=== PATIENT | male | born 1950 | race Caucasian/White ===

== ENCOUNTER 2023-07-09 10:43 | Emergency (ER) | payer OTHER, SELFPAY ==
[2023-07-09 10:47] VITALS: BP 127/89
[2023-07-09 11:08] VITALS: BMI 24.8
[2023-07-09 11:17] VITALS: BP 118/80
--- NOTE | 2023-07-09 11:32 | ED.GENMED ---
History of Present Illness
General
Chief Complaint: Change in Mental Status
Source: patient and spouse
Exam Limitations: dementia
Time Seen by Provider: 07/09/23 11:05
Nursing documentation reviewed up to this point in time: agreed with
Travel History
Have you had any contact with someone who has COVID-19?: No
Do you have any symptoms of coronavirus? Fever > 100 degrees, chills, cough, shortness of breath, sore throat, loss of taste or smell, muscle aches, or headache?: No
History of Present Illness
History of Present Illness:
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 Garcia at [place]. states pt has been declining weekly for some time but more significant decline past 10 days with new
behaviors of: rocking back and forth scratching his anterior thighs, leaning forward with arms folded across his abdomen wincing and moaning, more grunting, crying at times, shuffling walk, restless movements when sleeping, staying awake all night
some nights.
Since 06/28 pt could not go up steps alone anymore, couldn't comprehend lifting his feet to step up.
Started adult daycare 05/16/23
05/29 Started Seroquel 50 mg HS and Increased Melatonin from 6 mg to 12 mg HS.
Started daycare 05/16 and due to aggressive behavior earlier this month, Seroquel dose increased to 25 mg daily added
Hx mouth movement, twitching October 2022, neuro diagnosed as tics, put on Tetrabenazine then DC'd 02/2023 as tics resolved.
These tics recently started again and started Tetrabenazine 3 days ago, has had total 3 doses with no improvement so far.
Past History
Past History
ED Past Medical History: Asthma, HTN and Hypercholesterolemia
Social History
Tobacco: Non-smoker
Alcohol: None
Drug: None
Personal:
Living: with family
Employment: Retired
Family History
Family History: Other (Noncontributory)
Review of Systems
Review of Systems
Allergies reviewed?: Yes
All Other Systems: ROS reviewed and negative except as documented in HPI and ROS
Constitutional: Denies fever
Respiratory: Denies trouble breathing
Cardiac: Denies chest pain
ABD/GI: Denies abdominal pain, nausea or vomiting
: Denies dysuria, frequency or difficulty voiding
Musculoskeletal: Denies edema
Skin: Reports no symptoms
Neurological: Reports no symptoms
Phy Exam
Physical Exam
Physical Exam:
GENERAL: No acute distress. Alert, pleasant, demented
CONSTITUTIONAL: Afebrile.
EYES: PERRL, conjunctivae normal
ENMT: moist mucus membranes, Pharynx nl
RESPIRATORY: Regular respirations, nonlabored, lungs clear.
CARDIOVASCULAR: Regular rate and rhythm, no murmurs, no rubs.
GI: Soft, nontender, normal BS
MUSCULOSKELETAL: Moves with ease. Well perfused. No edema
SKIN: Warm, dry, pink
PSYCH: Normal mood and affect. Well kept, interactive follows commands, not oriented
NEUROLOGIC: Awake, alert. No focal neurological deficits. Follows commands. Forgetful, not oriented. Moving all extremities well. Strength equal throughout
Course
Orders/Labs/Results
Orders:
Orders
07/09/23 11:25
CT Head W/o Iv Contrast Urgent
Comment:
Reason For Exam: change in mental state
0.9% Sodium Chloride 500 ml [Nss] 500 ml IV BOLUS
07/09/23 11:31
Case Management Consult ONCE
Case Management Consult: Discharge Planning
Requested By:: PHYSICIAN
Comment: Radha's with declining mental state, asking about Palliative care. Thanks!
07/09/23 11:37
Complete Blood Count/With Diff Urgent
Comprehensive Metabolic Panel Urgent
Lipase Urgent
07/09/23 13:04
Urinalysis Reflex To Culture Urgent
Date Specimen was Collected: 07/09/23
Time Specimen was Collected: 13:00
Abnormal Lab Results
07/09/23
11:37
RBC 4.66 L 10^6/uL
(4.70-6.10)
MCH 32.2 H pg
(27.0-31.0)
MCHC 37.1 H g/dL
(33.0-37.0)
Absolute Lymphs (auto) 1.1 L 10^3/uL
(1.2-3.4)
Absolute Monos (auto) 0.9 H 10^3/uL
(0.1-0.6)
Lymphocytes % 16.2 L %
(20.5-51.1)
Monocytes % 14.1 H %
(1.7-9.3)
Sodium 130 L mmol/L
(135-145)
Chloride 96 L mmol/L
(98-107)
07/09/23 11:37
07/09/23 11:37
Vital Signs
Initial and Last Documented VS:
Initial Vital Signs
Temp Pulse Resp BP Pulse Ox
98.0 F 69 16 127/89 98
07/09/23 10:47 07/09/23 10:47 07/09/23 10:47 07/09/23 10:47 07/09/23 10:47
Last Documented Vital Signs
Temp Pulse Resp BP Pulse Ox
98.0 F 60 15 118/80 96
07/09/23 10:47 07/09/23 14:15 07/09/23 14:15 07/09/23 11:17 07/09/23 14:15
MDM/Problems Addressed
Differential Diagnosis Includes:
dehydration, UTI, CVA, progressive dementia
MDM/Problems Addressed:
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 Garcia at [place]. states pt has been declining weekly for some time but more significant decline past 10 days with new
behaviors of: rocking back and forth scratching his anterior thighs, leaning forward with arms folded across his abdomen wincing and moaning, more grunting, crying at times, shuffling walk, restless movements when sleeping, staying awake all night
some nights.
Since 06/28 pt could not go up steps alone anymore, couldn't comprehend lifting his feet to step up.
Started adult daycare 05/16/23
05/29 Started Seroquel 50 mg HS and Increased Melatonin from 6 mg to 12 mg HS.
Started daycare 05/16 and due to aggressive behavior earlier this month, Seroquel dose increased to 25 mg daily added
Hx mouth movement, twitching October 2022, neuro diagnosed as tics, put on Tetrabenazine then DC'd 02/2023 as tics resolved.
These tics recently started again and started Tetrabenazine 3 days ago, has had total 3 doses with no improvement so far.
is asking to see case management about possibly putting patient on palliative care. Her PCP had recommended hospice but they cannot see her until the end of July.
Case management consult
12:53 PM
CBC with no clinically significant abnormality
CMP with no clinically significant abnormality
Lipase normal
Head CT radiology report read: No evidence of acute intracranial abnormality.
2:18 PM
UA negative
Case management in to speak with , someone from visiting nurse will visit patient within the next 48 hours, palliative care and hospice will be discussed at that time. is very comfortable with this plan
Patient is stable for discharge
*Critical Care Note
Total Time (30-74mins, 75-104mins- exclusive of procedures): Not Applicable
ED Attending Note
-
Portions of this chart may have been created with voice recognition software.� Occasional wrong word or��sound alike� substitutions may have occurred due to the inherent limitations of voice recognition software.
Discharge Plan
Departure
Patient Disposition: Home (Routine Discharge)
Date of Disposition: 07/09/23
Time of Disposition: 14:19
Patient with high blood pressure during this ER visit?: No
Condition: Fair
Discharge Problem:
Change in mental status
Instructions: Altered Mental Status (DC)
Prescriptions:
No Action
atorvastatin 10 mg tablet
10 mg PO QPM
amlodipine 10 mg tablet
10 mg PO DAILY
hydrochlorothiazide 25 mg tablet
25 mg PO DAILY
quetiapine 25 mg Tablet
25 mg PO .SEE BELOW
Patient Comments:
07/09/2023, currently on hold. Prescribed one tablet in afternoon.
quetiapine 25 mg Tablet
50 mg PO .SEE BELOW
Patient Comments:
07/09/2023, currently on hold. Prescribed two tablets HS.
fluticasone propion-salmeterol 250-50 mcg/dose Blister With Device
1 inh INHALATION R BIDPRN PRN (Reason: sob)
polyethylene glycol 3350 [Miralax] 17 gram Powder In Packet
17 g PO BID
Patient Comments:
07/09/2023, taken with prune juice.
clonazepam 0.5 mg Tablet
0.5 mg PO .SEE BELOW PRN (Reason: ticks)
Patient Comments:
07/09/2023, currently on hold per spouse. Prescribed HSPRN.
bisacodyl [Dulcolax (bisacodyl)] 10 mg Suppository
10 mg [place] DAILY PRN (Reason: constipation)
tetrabenazine 12.5 mg Tablet
12.5 mg PO HS
Patient Comments:
07/09/2023, last filled on 12/20/2022 for 30 tablets; was on hold per spouse but PCP allowed pt. to start taking it again; has taken for past 2-3 nights for pt.'s ticks.
melatonin 12 mg Tablet
12 mg PO HS
Patient Comments:
07/09/2023, chewable.
Referrals:
Galileo Connor, [Family Provider] -
Activity Restrictions/Additional Instructions:
As we discussed, the urine shows no infection
Someone from the [facility] visiting nurses will come to your house within the next 48 hours. At that time palliative care and hospice can be discussed.
Nothing worrisome medically in your workup here today.
Interventions
Interventions:
*Risk Screen - Suicide Last Done: 07/09/23 11:40
*General Assessment Last Done: 07/09/23 13:01
*Neglect/Abuse Screening Last Done: 07/09/23 11:40
ED- Fall Risk Assessment Last Done: 07/09/23 11:19
*ED COVID-19 Vaccine History Last Done: 07/09/23 10:47
*Nursing Disposition Last Done: 07/09/23 14:36
ED- Pulmonary Assessment Last Done: 07/09/23 11:19
ED-Psychological Assessment Last Done: 07/09/23 14:36
ED- Neurological Assessment Last Done: 07/09/23 11:19
ED- Cardiac Assessment Last Done: 07/09/23 11:19
ED Swallowing Screen Last Done: 07/09/23 13:55
Discharge Date and Time
Discharge Date/Time: 07/09/23 14:49
Print Language: SOUTH SUDAN[place]
--- NOTE | 2023-07-09 11:49 | CM ---
Addendum entered by Brook Gunn RN 07/09/23 13:15:
Patient's confirmed appointment with Palliative Care.
Addendum entered by Brook Gunn RN 07/09/23 13:08:
CM was updated by [facility] that there is an appointment available on 07/16. CM updated patient's to call to accept appointment time. Patient's will call while in room.
Addendum entered by Brook Gunn RN 07/09/23 12:30:
CM met with patient's . Patient's is requesting assistance with palliative care referral. Patient has been referred to palliative Care by patient's outside MD. PCP referred patient also to Hospice.
Patient's would like a referral to Palliative Care and [facility]. Patient's has received a call from Hospice. CM advised that she speak with hospice to get further information on patient's eligibility.
CM sent referrals via [facility] to [facility] and Palliative Care.
Original Note:
CM received consult to discuss palliative care options with family. Patient not in room at this time. CM will follow.
[2023-07-09] MEDS: NSS 500 IV (12:02)
[2023-07-09 12:10] LABS: % Basophils 1.2 % (0-2); % Eosinophils 0.8 % (0-6); % Immature Granulocytes 0.3 % (0-0.5); % Lymphocytes 16.2 % (20.5-51.1); % Monocytes 14.1 % (1.7-9.3); % Neutrophils 67.4 % (42.2-75.2); Absolute Basophils 0.1 10^3/uL (0-0.2); Absolute Eosinophils 0.1 10^3/uL (0-0.7); Absolute Lymphocytes 1.1 10^3/uL (1.2-3.4); Absolute Monocytes 0.9 10^3/uL (0.1-0.6); Absolute Neutrophils 4.5 10^3/uL (1.4-6.5); Hematocrit 40.4 % (39.0-52.0); Mean Corp Hgb Conc. 37.1 g/dL (33.0-37.0); Mean Corpuscular Hgb 32.2 pg (27.0-31.0); Mean Corpuscular Volume 86.7 fL (80.0-94.0); Mean Platelet Volume 9.2 fL (7.4-10.4); Nucleated Red Blood Cells % 0 % (-); Platelet Count 304 10^3/uL (130-400); Red Blood Cell Count 4.66 10^6/uL (4.70-6.10); Red Cell Dist. Width 12.9 % (11.5-14.5); White Blood Cell Count 6.6 10^3/uL (4.8-10.8)
[2023-07-09 12:42] LABS: ALT (SGPT) 23 U/L (0-50); AST (SGOT) 26 U/L (17-59); Albumin 4.1 g/dl (3.5-5.0); Alkaline Phosphatase 53 U/L (38-126); Blood Urea Nitrogen 13 mg/dl (9-20); Calcium 9.8 mg/dl (8.4-10.2); Carbon Dioxide 28 mmol/L (22-30); Chloride 96 mmol/L (98-107); Estimated Creatinine Clearance 76 ml/min; Glucose 92 mg/dl (70-99); Lipase 175 U/L (23-300); Potassium 3.5 mmol/L (3.5-5.1); Sodium 130 mmol/L (135-145); Total Bilirubin 0.7 mg/dl (0.2-1.3); Total Protein 6.7 g/dl (6.3-8.2); eGFR > 60.00
[2023-07-09 13:25] LABS: Urine Albumin Negative (Neg - Trace); Urine Bilirubin Negative (Negative); Urine Character Clear (Clear); Urine Color Yellow; Urine Glucose Negative (Negative); Urine Ketone Negative (Negative); Urine Leukocyte Negative (Negative); Urine Nitrite Negative (Negative); Urine Occult Blood Negative (Negative); Urine Urobilinogen Negative (Neg - 1+)
== END 2023-07-09 14:49 | disposition home or self-care (01) ==
LOC: EMR 10:43
PROVIDERS: Registered Nurse; EMERGENCY PHYSICIAN Emergency Medicine; FAMILY PHYSICIAN Family Medicine
DX: R41.82 Altered mental status, unspecified (principal); G30.9 Alzheimer's disease, unspecified; F02.80 Dementia in other diseases classified elsewhere, unspecified severity, without behavioral disturbance, psychotic disturbance, mood disturbance, and anxiety
CPT/HCPCS: 99284; 96360; 70450; 80053; 81003; 83690; 85025

== ENCOUNTER 2024-01-21 10:35 | Emergency (ER) | payer OTHER, SELFPAY ==
[2024-01-21 10:45] VITALS: BP 110/77
[2024-01-21 10:48] VITALS: BMI 24.9
--- NOTE | 2024-01-21 11:39 | HOSPNOTE ---
I have been in contact with spouse and the plan was for patient to be admitted to hospice services at home tomorrow 01/21. The patient had two falls and change in mental status, fever and cough and one episode of vomiting. The spouse called me this
am and told me that patient was on the floor again and just did not seem right. Advised spouse to call 911. The plan is to check labs, CT of head and urine and then send patient home with hospice services with . Will continue to follow.
[2024-01-21] MEDS: NSS 1000 IV (11:41)
[2024-01-21 11:55] LABS: % Basophils 0.5 % (0-2); % Eosinophils 0.4 % (0-6); % Immature Granulocytes 0.3 % (0-0.5); % Monocytes 12.2 % (1.7-9.3); % Neutrophils 71.6 % (42.2-75.2); Absolute Basophils 0.1 10^3/uL (0-0.2); Absolute Lymphocytes 1.6 10^3/uL (1.2-3.4); Absolute Monocytes 1.3 10^3/uL (0.1-0.6); Absolute Neutrophils 7.5 10^3/uL (1.4-6.5); Hematocrit 35.6 % (39.0-52.0); Hemoglobin 12.7 g/dL (13.0-18.0); Mean Corp Hgb Conc. 35.7 g/dL (33.0-37.0); Mean Corpuscular Hgb 30.5 pg (27.0-31.0); Mean Corpuscular Volume 85.4 fL (80.0-94.0); Nucleated Red Blood Cells % 0 % (-); Platelet Count 179 10^3/uL (130-400); Red Blood Cell Count 4.17 10^6/uL (4.70-6.10); Red Cell Dist. Width 13.2 % (11.5-14.5); White Blood Cell Count 10.4 10^3/uL (4.8-10.8)
--- NOTE | 2024-01-21 11:58 | ED.GENMED ---
History of Present Illness
General
Chief Complaint: Weakness
Time Seen by Provider: 01/21/24 10:36
History of Present Illness
History of Present Illness:
73-year-old male with history of severe Alzheimer's presents to the emergency department for evaluation of malaise, fever, and vomiting over the past 2 days. According to his he has progressed rapidly through his dementia and she plans to have
him placed on hospice tomorrow. However over the past 2 days his symptoms have been dramatically worse. He has been incontinent of stool as well. Did strike his head with a fall out of bed yesterday while she was attempting to clean him
Past History
Past History
ED Past Medical History: Asthma, HTN and Hypercholesterolemia
Social History
Tobacco: Non-smoker
Alcohol: None
Drug: None
Personal:
Living: with family
Employment: Retired
Family History
Family History: Other (Noncontributory)
Review of Systems
Review of Systems
Allergies reviewed?: Yes
All Other Systems: ROS reviewed and negative except as documented in HPI and ROS
Phy Exam
Physical Exam
Physical Exam:
GEN: Well appearing, NAD, WDWN
Eyes: PERRLA, EOMs intact, no scleral icterus
HENT: NCAT, oral mucosa dry
Lungs: CTAB, no wheezes, rales, rhonchi, normal chest wall excursion
Cardiac: RRR, no M/R/G, no peripheral edema. Radial pulses 2+ bilat
Abdomen: S, NT, ND, NABS, no masses or hepatosplenomegaly
Neuro: Soft, opens eyes to voice or tactile stimuli but is profoundly disoriented, moves all extremities freely
MSK: No gross deformity or ecchymosis. No edema. No digital clubbing
Skin: No rashes, petechiae. Normal color, no pallor or jaundice.
Psych: Calm, cooperative, proper hygiene
Course
Orders/Labs/Results
Orders:
Orders
01/21/24 11:01
CT Head W/o Iv Contrast Urgent
Comment:
Reason For Exam: fall OOB
0.9% Sodium Chloride 1000 ml [Nss] 1,000 ml IV BOLUS
01/21/24 11:47
COVID-19 Antigen Urgent
Source: Nasal Swab
Complete Blood Count/With Diff Urgent
Comprehensive Metabolic Panel Urgent
Urinalysis Reflex To Culture Urgent
Date Specimen was Collected: 01/21/24
Time Specimen was Collected: 11:36
01/21/24 13:08
Potassium Chloride [KCl] 20 meq 0.9% Sodium Chloride 150 ml [Nss] 150 ml IV NOW
01/21/24 16:08
Olanzapine [Zyprexa] 5 mg IM NOW STA
01/21/24 16:09
Sterile Water [Sterile Water For Injection] 10 ml .ROUTE .[facility]
01/21/24 16:34
Lorazepam [Ativan] 1 mg PO NOW STA
Abnormal Lab Results
01/21/24
11:47
RBC 4.17 L 10^6/uL
(4.70-6.10)
Hgb 12.7 L g/dL
(13.0-18.0)
Hct 35.6 L %
(39.0-52.0)
Absolute Neuts (auto) 7.5 H 10^3/uL
(1.4-6.5)
Absolute Monos (auto) 1.3 H 10^3/uL
(0.1-0.6)
Lymphocytes % 15.0 L %
(20.5-51.1)
Monocytes % 12.2 H %
(1.7-9.3)
Potassium 2.8 L mmol/L
(3.5-5.1)
Chloride 96 L mmol/L
(98-107)
Carbon Dioxide 37 H mmol/L
(22-30)
Glucose 102 H mg/dl
(70-99)
Total Protein 5.9 L g/dl
(6.3-8.2)
SARS-CoV-2 Antigen Positive A
(Negative)
01/21/24 11:47
01/21/24 11:47
Vital Signs
Initial and Last Documented VS:
Initial Vital Signs
Temp Pulse Resp BP Pulse Ox
98.3 F 56 18 110/77 98
01/21/24 10:45 01/21/24 10:45 01/21/24 10:45 01/21/24 10:45 01/21/24 10:45
Last Documented Vital Signs
Temp Pulse Resp BP Pulse Ox
98.3 F 62 20 130/77 95
01/21/24 10:45 01/21/24 16:30 01/21/24 16:30 01/21/24 16:30 01/21/24 16:30
MDM/Problems Addressed
MDM/Problems Addressed:
Patient's labs are unremarkable for he is positive for COVID-19. CT of the head is reassuring. Patient's hospice nurse was involved in the care of the patient in the ER, at this time the is comfortable bringing him home with a hospice care to
begin tomorrow, his significant metabolic encephalopathy is likely due to COVID-19 however he is not hypoxic thus there is no indication for hospitalization
*Critical Care Note
Total Time (30-74mins, 75-104mins- exclusive of procedures): Not Applicable
ED Attending Note
-
Portions of this chart may have been created with voice recognition software.� Occasional wrong word or��sound alike� substitutions may have occurred due to the inherent limitations of voice recognition software.
Discharge Plan
Departure
Patient Disposition: Home (Routine Discharge)
Date of Disposition: 01/21/24
Time of Disposition: 14:34
Patient with high blood pressure during this ER visit?: No
Discharge Problem:
COVID-19
Instructions: COVID-19 ED
Prescriptions:
No Action
atorvastatin 10 mg tablet
10 mg PO QPM
amlodipine 10 mg tablet
10 mg PO DAILY
hydrochlorothiazide 25 mg tablet
25 mg PO DAILY
quetiapine 25 mg Tablet
25 mg PO .SEE BELOW
Patient Comments:
07/09/2023, currently on hold. Prescribed one tablet in afternoon.
quetiapine 25 mg Tablet
50 mg PO .SEE BELOW
Patient Comments:
07/09/2023, currently on hold. Prescribed two tablets HS.
fluticasone propion-salmeterol 250-50 mcg/dose Blister With Device
1 inh INHALATION R BIDPRN PRN (Reason: sob)
polyethylene glycol 3350 [Miralax] 17 gram Powder In Packet
17 g PO BID
Patient Comments:
07/09/2023, taken with prune juice.
clonazepam 0.5 mg Tablet
0.5 mg PO .SEE BELOW PRN (Reason: ticks)
Patient Comments:
07/09/2023, currently on hold per spouse. Prescribed HSPRN.
bisacodyl [Dulcolax (bisacodyl)] 10 mg Suppository
10 mg [place] DAILY PRN (Reason: constipation)
tetrabenazine 12.5 mg Tablet
12.5 mg PO HS
Patient Comments:
07/09/2023, last filled on 12/20/2022 for 30 tablets; was on hold per spouse but PCP allowed pt. to start taking it again; has taken for past 2-3 nights for pt.'s ticks.
melatonin 12 mg Tablet
12 mg PO HS
Patient Comments:
07/09/2023, chewable.
Referrals:
Galileo Connor DO [Family Provider] -
Interventions
Interventions:
*Risk Screen - Suicide Last Done: 01/21/24 10:45
*General Assessment Last Done: 01/21/24 10:52
*Neglect/Abuse Screening Last Done: 01/21/24 10:45
ED- Fall Risk Assessment Last Done: 01/21/24 10:52
*ED COVID-19 Vaccine History Last Done: 01/21/24 10:52
ED- Cardiac Assessment Last Done: 01/21/24 10:52
ED- Neurological Assessment Last Done: 01/21/24 10:52
ED- Pulmonary Assessment Last Done: 01/21/24 10:52
Discharge Date and Time
Print Language: EMIRATI
[2024-01-21 12:09] LABS: ALT (SGPT) 21 U/L (0-50); AST (SGOT) 35 U/L (17-59); Albumin 3.6 g/dl (3.5-5.0); Alkaline Phosphatase 42 U/L (38-126); Blood Urea Nitrogen 15 mg/dl (9-20); Calcium 9.2 mg/dl (8.4-10.2); Carbon Dioxide 37 mmol/L (22-30); Chloride 96 mmol/L (98-107); Estimated Creatinine Clearance 91 ml/min; Glucose 102 mg/dl (70-99); Potassium 2.8 mmol/L (3.5-5.1); Sodium 137 mmol/L (135-145); Total Bilirubin 0.8 mg/dl (0.2-1.3); Total Protein 5.9 g/dl (6.3-8.2); eGFR > 60.00
[2024-01-21 12:16] LABS: COVID-19 Antigen Positive (Negative)
[2024-01-21] MEDS: KCL 160 MEQ IV (13:35)
[2024-01-21 15:03] LABS: Urine Albumin Negative (Neg - Trace); Urine Bilirubin Negative (Negative); Urine Character Clear (Clear); Urine Color Yellow; Urine Glucose Negative (Negative); Urine Ketone Negative (Negative); Urine Leukocyte Negative (Negative); Urine Nitrite Negative (Negative); Urine Occult Blood Negative (Negative); Urine Urobilinogen Negative (Neg - 1+)
[2024-01-21] MEDS: ZYPREXA 5 MG IM (16:10)
[2024-01-21 16:30] VITALS: BP 130/77
[2024-01-21] MEDS: ATIVAN 1 MG PO (16:37)
[2024-01-21 19:41] VITALS: BP 128/80
== END 2024-01-21 19:49 | disposition home or self-care (01) ==
LOC: EMR 10:35
PROVIDERS: Physician Assistant; EMERGENCY PHYSICIAN Emergency Medicine; FAMILY PHYSICIAN Family Medicine
DX: U07.1 COVID-19 (principal); S09.90XA Unspecified injury of head, initial encounter; R11.10 Vomiting, unspecified; R15.9 Full incontinence of feces; R53.81 Other malaise; W06.XXXA Fall from bed, initial encounter; Z11.52 Encounter for screening for COVID-19; G93.41 Metabolic encephalopathy; F02.C0 Dementia in other diseases classified elsewhere, severe, without behavioral disturbance, psychotic disturbance, mood disturbance, and anxiety; G30.9 Alzheimer's disease, unspecified; I10 Essential (primary) hypertension; E78.00 Pure hypercholesterolemia, unspecified; J45.909 Unspecified asthma, uncomplicated
CPT/HCPCS: 99284; 96374; 96361; 96372; 70450; 80053; 81003; 85025; 87811; J2358